=== PATIENT | female | born 1985 | race Caucasian/White ===

== ENCOUNTER 2017-10-31 11:47 | Emergency (ER) | payer OTHER ==
[2017-10-31 12:23] LABS: BASOPHILS # (AUTO) 0.1 10^3/uL (0.0-0.1); BASOPHILS % (AUTO) 0.4 %; EOSINOPHILS % (AUTO) 0.3 %; HGB - HEMOGLOBIN 12.6 g/dL (12.0-16.0); LYMPHOCYTES # (AUTO) 2.2 10^3/uL (1.5-3.5); LYMPHOCYTES % (AUTO) 15.1 %; MEAN CORPUSCULAR HEMOGLOBIN 32.4 pg (27.0-31.0); MEAN CORPUSCULAR HGB CONC 34.1 g/dL (32.0-36.0); MEAN CORPUSCULAR VOLUME 94.9 fL (81.0-99.0); MEAN PLATELET VOLUME 7.6 fL (7.9-10.8); MONOCYTES % (AUTO) 6.9 %; NEUTROPHILS # (AUTO) 11.4 10^3/uL (1.5-6.6); NEUTROPHILS % (AUTO) 77.3 %; PLT - PLATELET COUNT 220 10^3/uL (130-450); RED BLOOD COUNT 3.89 10^6/uL (4.20-5.40); WHITE BLOOD COUNT 14.7 x10^3/uL (4.8-10.8)
[2017-10-31 12:33] LABS: CALCIUM 8.9 mg/dL (8.5-10.3); CREATININE 0.6 mg/dL (0.4-1.0)
[2017-10-31 12:46] LABS: HCG,QUALITATIVE BLOOD POSITIVE
[2017-10-31 13:00] LABS: BILIRUBIN,URINE NEGATIVE (NEGATIVE); GLUCOSE, URINE (UA) NEGATIVE (NEGATIVE); KETONES,URINE (UA) 15 mg/dL (NEGATIVE); LEUKOCYTE ESTERASE, URINE NEGATIVE (NEGATIVE); NITRITE,URINE NEGATIVE (NEGATIVE); OCCULT BLOOD,URINE NEGATIVE (NEGATIVE); PH,URINE 6.5 PH (5.0-7.5); PROTEIN,URINE NEGATIVE (NEGATIVE); UROBILINOGEN,URINE 0.2 (NORMAL) E.U./dL (NORMAL)
[2017-10-31 13:02] LABS: CLARITY,URINE CLEAR (CLEAR)
--- NOTE | 2017-10-31 14:05 | ED Physician Documentation ---
History of Present Illness - Stated complaint Stated Complaint: POST EGG RET AB PX/ 2 DAYS AGO - Chief complaint Chief Complaint: Abd Pain - Additonal information Additional information: hx from pt 31 female hx endometriosis prior surgery lap and IVF procedures G1Po (miscarriage) is undergoing IVF though Jd meds included Gonal G (follicle stimulating hormone), menopur (ovulation induction), ganirelix (LH inhibitor) and ovidrel (recombinent HCG - causes + HCG result) had eggs harvested Wednesday 48 hr ago to ER today with sig diffuse lower > upper abd pain minimal bleeding no fever Review of Systems Constitutional: denies: Fever GI: reports: Abdominal Pain : denies: Now EGA (but will have + HCG result) Endocrine: denies: Easy bruising / bleeding Immunocompromised: denies: Immunocompromised PD PAST MEDICAL HISTORY - Past Medical History Past Medical History: No - Past Surgical History Past Surgical History: No - Present Medications Home Medications: Ambulatory Orders Medication Instructions Recorded Confirmed Pnv No.122/Iron/Folic Acid 1 each PO 10/31/17 [ Multi Tablet] Senna [Senokot] 8.6 mg PO ONCE 10/31/17 10/31/17 - Allergies Allergies/Adverse Reactions: Allergies Allergy/AdvReac Type Severity Reaction Status Date / Time No Known Drug Allergies Allergy Verified 10/31/17 12:09 - Social History Does the pt smoke?: No Smoking Status: Never smoker Does the pt drink ETOH?: No Does the pt have substance abuse?: No - Immunizations Immunizations are current?: Yes - POLST Patient has POLST: No PD ED PE NORMAL - Vitals Vital signs reviewed: Yes - Cardiac Cardiac: RRR - Respiratory Respiratory: No respiratory distress - Abdomen Abdomen: Soft, Other (mild distension, sg TTP with some vol guarding lower > upper R > L) - Neuro Neuro: Alert and oriented X 3 Results - Vitals Vitals: Vital Signs - 24 hr 10/31/17 12:07 Temperature 36.5 C Heart Rate 88 Respiratory 15 Rate Blood Pressure 120/78 O2 Saturation 100 Oxygen O2 Source Room air - Labs Labs: Laboratory Tests 10/31/17 10/31/17 10/31/17 12:17 12:19 12:19 WBC 14.7 H RBC 3.89 L Hgb 12.6 Hct 36.9 L MCV 94.9 MCH 32.4 H MCHC 34.1 RDW 12.0 Plt Count 220 MPV 7.6 L Neut # 11.4 H Lymph # 2.2 Clarke # 1.0 Eos # 0.0 Baso # 0.1 Absolute Nucleated RBC 0.00 Nucleated RBC % 0.0 Sodium Potassium Chloride Carbon Dioxide Anion Gap BUN Creatinine Estimated GFR (MDRD) Glucose Calcium Serum HCG, Qual POSITIVE HCG, Quant 53.96 Urine Color Urine Clarity Urine pH Ur Specific [place] Urine Protein Urine Glucose (UA) Urine Ketones Urine Occult Blood Urine Nitrite Urine Bilirubin Urine Urobilinogen Ur Leukocyte Esterase Ur Microscopic Review Urine Culture Comments 10/31/17 10/31/17 12:19 12:26 WBC RBC Hgb Hct MCV MCH MCHC RDW Plt Count MPV Neut # Lymph # Clarke # Eos # Baso # Absolute Nucleated RBC Nucleated RBC % Sodium 134 L Potassium 3.7 Chloride 102 Carbon Dioxide 22 Anion Gap 10.0 BUN 7 Creatinine 0.6 Estimated GFR (MDRD) 116 Glucose 84 Calcium 8.9 Serum HCG, Qual HCG, Quant Urine Color YELLOW Urine Clarity CLEAR Urine pH 6.5 Ur Specific [place] 1.015 Urine Protein NEGATIVE Urine Glucose (UA) NEGATIVE Urine Ketones 15 H Urine Occult Blood NEGATIVE Urine Nitrite NEGATIVE Urine Bilirubin NEGATIVE Urine Urobilinogen 0.2 (NORMAL) Ur Leukocyte Esterase NEGATIVE Ur Microscopic Review NOT INDICATED Urine Culture Comments NOT INDICATED - Rads (name of study) pelvic sono Radiology: See rad report (unremarkable endometrium, no IUP, large free fluid in pelvis cannot determine if blood could consider CT, symm enlarged ovaries could be sequalae IVF, + flow rex) PD MEDICAL DECISION MAKING - ED course ED course: large FF on sono doubt blood as H/H normal spoke to Dr Genaro MALONE and [facility] concern for ovarian hyperstim rec pain meds overnight and they will see her at [facility] in the AM 0800 if pain worse or feel faint etc come back to ER for emergent transfer Departure - Departure Disposition: 01 Home, Self Care Clinical Impression: Mild to moderate hyperstimulation of ovaries Condition: Good Follow-Up: [facility] [Provider Group] Comments: I spoke to Dr Flaherty (sp?) at [facility] and she feels this is likely ovarian hyperstimulation and not internal bleeding She would like to see you in IVF clinic at [facility] tomorrow morning at 8 AM You need to have another person drive you. Overnight, I have prescribed medication you can take - one pill every 4-6 hr as needed for the pain If you get worse overnight (severe pain, feeling faint, chest pain, shortness or breath, heavy vaginal bleeding) come back to the ER Forms: Activity restrictions
[2017-10-31] MEDS ORDERED: oxyCODONE 5 MG TABLET PO STA ×2 (14:07→18:06)
--- NOTE | 2017-10-31 15:28 | Ultrasound Report ---
EXAM: FIRST TRIMESTER OBSTETRIC ULTRASOUND (Less than 11 weeks) EXAM DATE: 10/31/2017 02:11 PM. CLINICAL HISTORY: IVF + HCG abd pain. LMP: 10/14/2017. COMPARISONS: None. TECHNIQUE: Transabdominal and transvaginal ultrasound examination with static image documentation. CLINICAL DATES: EGA 2 weeks, 3 days based on LMP ASSESSMENT: No intrauterine gestational sac, yolk sac, or embryo seen.. MATERNAL STRUCTURES: Uterus: Anteverted. Measuring 9 x 2.8 x 4.4 cm. Endometrium measures 5.6 cm.. Cervix: Closed. Right Ovary/Adnexa: Enlarged ovary with multiple likely follicular cysts. The ovary measures 7.5 x 6 .1 x 7.4 cm, volume 177 cc. Left Ovary/Adnexa: Enlarged ovary with multiple likely follicular cysts. The ovary measures 8.5 x 5. 3 x 7.4 cm, volume 174 cc. Free Fluid: Large free fluid in the pelvis.. Other: None. IMPRESSION: 1. Unremarkable endometrium. No evidence for intrauterine or ectopic . 2. Large free fluid seen in the pelvis. 3. Symmetric enlarged bilateral ovaries with multiple likely follicular cysts. Findings could represe nt sequelae of in vitro fertilization treatment. Doppler flow seen in the ovaries without sonographic evidence for torsion. [facility] Referring Provider Line: [phone] SITE ID: [id number]
[2017-10-31] MEDS ORDERED: oxyCODONE/ACET 5/325 Prepack 4 PO STA (18:07)
[2017-10-31 18:55] VITALS: BP 119/78
== END 2017-10-31 18:20 | disposition home or self-care (01) ==
LOC: ED 11:47
DX: N98.1 Hyperstimulation of ovaries (principal); Z98.890 Other specified postprocedural states
CPT/HCPCS: 36415; 76801; 76817; 80048; 81003; 84702; 84703; 85025; 99283; A9270; 81001; 87086

== ENCOUNTER 2020-01-11 23:42 | Emergency (ER) | payer OTHER ==
[2020-01-11 23:49] VITALS: BP 150/80
[2020-01-11 23:58] LABS: BILIRUBIN,URINE NEGATIVE (NEGATIVE); GLUCOSE, URINE (UA) NEGATIVE (NEGATIVE); KETONES,URINE (UA) NEGATIVE (NEGATIVE); LEUKOCYTE ESTERASE, URINE MODERATE (NEGATIVE); NITRITE,URINE NEGATIVE (NEGATIVE); OCCULT BLOOD,URINE LARGE (NEGATIVE); PROTEIN,URINE NEGATIVE (NEGATIVE); UROBILINOGEN,URINE 0.2 (NORMAL) E.U./dL (NORMAL)
[2020-01-12 00:05] LABS: CLARITY,URINE CLEAR (CLEAR)
[2020-01-12 00:06] LABS: BACTERIA,URINE Rare /HPF (None Seen); HCG UR QUAL NEGATIVE; SQUAMOUS EPITHELIAL CELL,UR RARE Squamous (<= Few)
[2020-01-12] MEDS ORDERED: PHENAZOPYRIDINE 100 MG TABLET PO STA (00:09)
[2020-01-12] MEDS ORDERED: SULFAMETH/TRIMETH DS 800/160 MG TABLET PO STA (00:09)
--- NOTE | 2020-01-12 00:12 | ED Physician Documentation ---
History of Present Illness - Stated complaint Stated Complaint: FEM - Chief complaint Chief Complaint: UTI - History obtained from History obtained from: Patient - Additonal information Additional information: Patient comes emergency department complaining of dysuria and frequency that started this afternoon. Patient states she woke up feeling completely normal. She has had UTIs before and states this feels the same. No blood in her urine. No vaginal symptoms. No nausea, vomiting, diarrhea, fevers, or chills. No other complaints at this time. Review of Systems Ten Systems: 10 systems reviewed and negative Constitutional: reports: Reviewed and negative Eyes: reports: Reviewed and negative Ears: reports: Reviewed and negative Nose: reports: Reviewed and negative Throat: reports: Reviewed and negative Cardiac: reports: Reviewed and negative Respiratory: reports: Reviewed and negative GI: reports: Reviewed and negative : reports: Dysuria, Frequency Skin: reports: Reviewed and negative Musculoskeletal: reports: Reviewed and negative Neurologic: reports: Reviewed and negative Psychiatric: reports: Reviewed and negative Endocrine: reports: Reviewed and negative Immunocompromised: reports: Reviewed and negative PD PAST MEDICAL HISTORY - Past Medical History Past Medical History: Yes 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 - Past Surgical History Past Surgical History: Yes /FLAME PLANER: Other - Present Medications Home Medications: Ambulatory Orders Medication Instructions Recorded Confirmed No122/Iron/Folic Acid 1 each PO 10/31/17 [ Multi Tablet] Senna [Senokot] 8.6 mg PO ONCE 10/31/17 10/31/17 Phenazopyridine HCl [Pyridium] 200 mg PO TID PRN #6 tablet 01/12/20 Sulfamethox/Trimeth 800/160 1 each PO BID #14 tablet 01/12/20 [Bactrim Ds 800/160] - Allergies Allergies/Adverse Reactions: Allergies Allergy/AdvReac Type Severity Reaction Status Date / Time No Known Drug Allergies Allergy Verified 01/11/20 23:46 - Social History Does the pt smoke?: No Smoking Status: Never smoker Does the pt drink ETOH?: No Does the pt have substance abuse?: No - Immunizations Immunizations are current?: Yes - POLST Patient has POLST: No PD ED PE NORMAL - Vitals Vital signs reviewed: Yes - General General: Alert and oriented X 3, No acute distress, Well developed/nourished - HEENT HEENT: Atraumatic, PERRL, EOMI, Moist mucous membranes - Neck Neck: Supple, no meningeal sign - Cardiac Cardiac: RRR, No murmur - Respiratory Respiratory: No respiratory distress, Clear bilaterally - Abdomen Abdomen: Soft, Non tender, Non distended - Derm Derm: Warm and dry - Extremities Extremities: No deformity - Neuro Neuro: Alert and oriented X 3 - Psych Psych: Normal mood, Normal affect Results - Vitals Vitals: Vital Signs - 24 hr 01/11/20 23:46 Temperature 36.5 C Heart Rate 98 Respiratory 16 Rate Blood Pressure 150/80 H O2 Saturation 100 Oxygen O2 Source Room air - Labs Labs: Laboratory Tests 01/11/20 01/11/20 23:53 23:53 Urine Color LT RED Urine Clarity CLEAR Urine pH 7.0 Ur Specific [place] <=1.005 <1.005 Urine Protein NEGATIVE Urine Glucose (UA) NEGATIVE Urine Ketones NEGATIVE Urine Occult Blood LARGE H Urine Nitrite NEGATIVE Urine Bilirubin NEGATIVE Urine Urobilinogen 0.2 (NORMAL) Ur Leukocyte Esterase MODERATE H Urine RBC 6-10 H Urine WBC 11-25 H Ur Squamous Epith Cells RARE Squamous Urine Bacteria Rare Ur Microscopic Review INDICATED Urine Culture Comments INDICATED Urine HCG, Qual NEGATIVE PD MEDICAL DECISION MAKING - ED course Complexity details: reviewed results, re-evaluated patient, considered differential, d/w patient ED course: Patient was worked up with urinalysis, which did show a urinary tract infection. She was started on Bactrim and Pyridium here in the emergency department and given prescriptions for the same. We have discussed home management of the symptoms, as well as the usual indications for return. Departure - Departure Disposition: 01 Home, Self Care Clinical Impression: Urinary tract infection Condition: Stable Instructions: ED UTI Cystitis Female Prescriptions: Phenazopyridine HCl [Pyridium] 200 mg PO TID PRN #6 tablet PRN Reason: dysuria Sulfamethox/Trimeth 800/160 [Bactrim Ds 800/160] 1 each PO BID #14 tablet
== END 2020-01-12 00:21 | disposition home or self-care (01) ==
LOC: ED 23:42
DX: N39.0 Urinary tract infection, site not specified (principal)
CPT/HCPCS: 81001; 81025; 87077; 87086; 87181; 99283; A9270; 81003